=== PATIENT | female | born 1955 | race Hispanic/Latino ===

== ENCOUNTER 2019-08-12 06:34 | Day surgery (SDC) | payer OTHER ==
[2019-08-12] VITALS (11 sets, daily range): BP systolic 132–187; BP diastolic 35–56
[~2019-08-12] VITALS: Ht 154.9 cm; Wt 89.6 kg
[2019-08-12] MEDS ORDERED: MINO100C6 PO (07:08)
[2019-08-12] MEDS ORDERED: ATOR-2 PO (07:08)
[2019-08-12] MEDS ORDERED: LOSA100T58 PO (07:08)
[2019-08-12] MEDS ORDERED: CLOP75TA14 PO (07:08)
[2019-08-12] MEDS ORDERED: METF-446 PO (07:08)
[2019-08-12] MEDS ORDERED: HYDR25TA PO (07:08)
[2019-08-12] MEDS ORDERED: TRAM50TA4 PO (07:08)
[2019-08-12] MEDS ORDERED: INSLAN SQ (07:08)
[2019-08-12] MEDS ORDERED: METO-408 PO (07:08)
[2019-08-12] MEDS ORDERED: SODIUM CHLORIDE 0.9% 1000ML 1,000 ML IV ONE (07:21)
[2019-08-12 07:23] LABS: BASOPHILS % (AUTO) 0.6 % (0.0-5.0); EOSINOPHILS % (AUTO) 8.5 % (0.0-8.0); HEMATOCRIT 38.6 % (36-48); LYMPHOCYTES % (AUTO) 29.5 % (21.0-51.0); MEAN CORPUSCULAR HEMOGLOBIN 29.6 pg (27.0-33.0); MEAN CORPUSCULAR HGB CONC 32.4 g/dL (32.0-36.0); MEAN CORPUSCULAR VOLUME 91.5 fL (79-99); MONOCYTES % (AUTO) 9.2 % (3.0-13.0); NEUTROPHILS % (AUTO) 51.9 % (40.0-77.0); PLATELET COUNT (AUTO) 201 K/uL (130-400); RED BLOOD CELL COUNT(AUTO) 4.22 MIL/uL (4.00-5.50); RED CELL DISTRIBUTION WIDTH 11.9 % (11.0-15.5); WHITE BLOOD COUNT (AUTO) 9.8 K/uL (4.8-10.8)
[2019-08-12 07:30] LABS: HEMOGLOBIN A1C 9.8 % (4.0-6.0)
[2019-08-12 07:34] LABS: POTASSIUM 4.5 mmol/L (3.5-5.1)
[2019-08-12 07:38] LABS: INR 0.95 (0.85-1.15); PARTIAL THROMBOPLASTIN TIME 26.4 SEC (26.3-35.5)
[2019-08-12 07:40] LABS: ALBUMIN 2.8 g/dL (3.5-5.0); BILIRUBIN,TOTAL 0.3 mg/dL (0.2-1.0); TOTAL PROTEIN, SERUM 7.9 g/dL (6.0-8.3)
--- NOTE | 2019-08-12 07:50 | NUR ---
PRE-PROCEDURE RECEIVED TO DAY 15 FOR SCHEDULED RIGHT LEG ANGIOGRAM LEFT RADIAL APPROACH VIA W/C. ACCOMPANIED BY MAXIMILIANO QUILES, PROVIDER. PER PT ONLY HAS ONE SON "HE'S FAR AWAY WORKING". AWAKE IN NO ACUTE DISTRESS. DENIES PAIN. CONNECTED TO CONTINUOUS CARDIOPULMONARY MONITORING. DRESSING PRESENT TO RIGHT FOOT FOR NON-HEALING RIGHT FOOT ULCER. PT RECEIVES WOUND CARE DAILY AT HOME. SIDE RAILS UP X2, BED IN LOWEST POSITION, AND CALL LIGHT W/IN REACH.
--- NOTE | 2019-08-12 09:32 | NUR ---
PROCEDURE TRANSFERRED TO DIRECTOR CONSUMER VIA BED BY CELINA LOZANO RN. AWAKE IN NO ACUTE DISTRESS.
[2019-08-12] MEDS ORDERED: FENTANYL CITRATE PF 50 MCG/1 ML 2ML VIAL ONE (09:49)
[2019-08-12] MEDS ORDERED: VERAPAMIL HCL 2.5 MG/ML VIAL ONE (09:49)
[2019-08-12] MEDS ORDERED: HEPARIN SODIUM 1000UNIT/ML 10ML VIAL ONE ×2 (09:49→10:49)
[2019-08-12] MEDS ORDERED: MIDAZOLAM HCL 1 MG/ML 2ML VIAL ONE (09:49)
[2019-08-12] MEDS ORDERED: LIDOCAINE HCL 2% 20ML ONE (09:49)
[2019-08-12] MEDS ORDERED: IODIXANOL 320 MG/ML 100 ML VIAL ONE (09:50)
[2019-08-12] MEDS ORDERED: NITROGLYCERIN 50 MG/D5% WATER 1 BOT ONE (10:01)
[2019-08-12] MEDS ORDERED: SODIUM CHLORIDE 0.9% 1000ML 1,000 ML IV SCH (11:24)
[2019-08-12] MEDS ORDERED: DEXTROSE 50%-WATER 50 ML DISP.SYRIN IV PRN (11:30)
[2019-08-12] MEDS ORDERED: ACETAMINOPHEN-CODEINE 300/30MG TAB PO PRN ×2 (11:30)
[2019-08-12] MEDS ORDERED: INSULIN HUMULIN R 100 UNIT/ML 3ML SQ SCH (11:30)
--- NOTE | 2019-08-12 11:47 | NUR ---
POST-PROCEDURE RECEIVED FROM TECHNICAL REPORT WRITER VIA BED BY NIKOLAS BATEMAN RN. AWAKE IN NO ACUTE DISTRESS. CONNECTED TO CONTINUOUS CARDIOPULMONARY MONITORING. TR BAND PRESENT TO LEFT RADIAL AREA WITH 13ML OF AIR; NO SIGNS OF BLEEDING. PULSE OX 98% TO LEFT THUMB. EDUCATED TO KEEP LEFT ARM STRAIGHT. PT VERBALIZED UNDERSTANDING. NS AT 250ML/HR. SIDE RAILS UP X2, BED IN LOWEST POSITION, AND CALL LIGHT W/IN REACH.
--- NOTE | 2019-08-12 12:05 | NUR ---
DIET ATE 75% OF LUNCH.
--- NOTE | 2019-08-12 14:58 | NUR ---
REPORT BEDSIDE REPORT GIVEN TO SAMEER JASMINE USING SBAR. VERBALIZED UNDERSTANDING. TR BAND TO LEFT RADIAL W/O SIGNS OF BLEEDING.
--- NOTE | 2019-08-12 15:00 | NUR ---
HANDOFF COMMUNICATION' RECEIVED REPORT FROM AMANDA MONTENEGRO RN USING SBAR AT BEDSIDE. TR BAND IN PLACE TO LEFT WRIST, NO BLEEDING NOTED, NO HEMATOMA NOTED. RADIAL PULSES PRESENT BILATERALLY. PATIENT'S PROVIDER AT BEDSIDE.
--- NOTE | 2019-08-12 15:10 | NUR ---
TR BAND REMOVED 2ML OF AIR FROM TR BAND. PATIENT TOLERATED WELL. NO BLEEDING NOTED TO SITE, RADIAL PULSES PRESENT BILATERALLY.
--- NOTE | 2019-08-12 15:25 | NUR ---
DISCHARGE INSTRUCTIONS DISCHARGE INSTRUCTIONS PROVIDED TO PATIENT AND PATIENT'S PROVIDER. FOLLOW UP APPOINTMENTS AND PRESCRIPTIONS PROVIDED. HANDOUT ON RADIAL SITE CARE PROVIDED AND INSTRUCTIONS GIVEN TO PATIENT AND PROVIDER. ALL QUESTIONS/CONCERNS ADDRESSED, BOTH PATIENT AND PROVIDER VERBALIZED UNDERSTANDING.
--- NOTE | 2019-08-12 15:30 | NUR ---
TR BAND REMOVED 2ML OF AIR FROM TR BAND.PATIENT TOLERATED WELL. REMOVED TR BAND FROM PATIENT'S LEFT WRIST. NO BLEEDING NOTED, NO HEMATOMA NOTED.COVERED SITE WITH BANDAID. INSTRUCTED PATIENT NOT TO BEND LEFT WRIST FOR 24 HOURS.
--- NOTE | 2019-08-12 16:15 | NUR ---
PATIENT DISCHARGED FROM FACILITY VIA WHEELCHAIR AND ASSISTED INTO PRIVATE VEHICLE DRIVEN BY PATIENT'S PROVIDER.
== END 2019-08-12 16:15 | disposition home or self-care (01) ==
LOC: DAH 06:34
PROVIDERS: ATTEND Thoracic Surgery (Cardiothoracic Vascular Surgery)
DX: I70.208 Unspecified atherosclerosis of native arteries of extremities, other extremity (principal); I70.235 Atherosclerosis of native arteries of right leg with ulceration of other part of foot; E11.9 Type 2 diabetes mellitus without complications; I10 Essential (primary) hypertension; E78.5 Hyperlipidemia, unspecified; Z87.891 Personal history of nicotine dependence; Z88.0 Allergy status to penicillin; Z88.1 Allergy status to other antibiotic agents; Z88.8 Allergy status to other drugs, medicaments and biological substances; Z79.899 Other long term (current) drug therapy; Z79.01 Long term (current) use of anticoagulants; Z79.4 Long term (current) use of insulin; Z83.3 Family history of diabetes mellitus; Z98.890 Other specified postprocedural states
CPT/HCPCS: 36247; 36415; 37246; 71045; 75716; 80053; 82948 ×2; 83036; 85025; 85610; 85730; 93005; A4215; A4216; A4221; A4222; A4223 ×3; A4606; A4663; C1725; C1769 ×4; C1887; C1894 ×3; J1644 ×3; J2250; J3010; J3490 ×3; J7030; Q9967; 99156; 99157